=== PATIENT | female | born 1995 | race American Indian/Alaskan Native ===

== ENCOUNTER 2017-08-21 15:38 | Emergency (ER) | payer MEDICAID ==
[2017-08-21] MEDS ORDERED: TYLENOL PO ONE (17:04)
[2017-08-21] MEDS ORDERED: TYLENOL ONE (17:04)
[2017-08-21] MEDS ORDERED: TYLENOL/CODEINE PO ONE (18:12)
[2017-08-21 18:59] LABS: Bilirubin,Urine NEG (Negative); Blood,Urine NEG (Negative); Ketones,Urine TR mg/dL (Negative); Leukocyte Esterase,Urine NEG (Negative); Nitrite,Urine NEG (Negative); Protein,Urine <15 mg/dL mg/dL (Negative); Urobilinogen,Urine < 2.0 mg/dL (<2.0); WBC,Urine < 1.0 /HPF (0.0-6.0)
[2017-08-21] MEDS ORDERED: DECADRON IM ONE (19:12)
--- NOTE | 2017-08-21 19:38 | Emergency Department Report ---
HPI - General Chief Complaint: Sore Throat Time Seen by Provider: 08/21/17 18:59 - HPI HPI: 22-year-old female presents today complaining of a sore throat and body aches. Admits to fever, chills, cough, swollen lymph nodes, nasal congestion, pain with swallowing and nausea. He tried [id number] cold medication without relief. Denies chest pain, shortness of breath, abdominal pain, urinary symptoms, earache. ED Past Medical Hx - Past Medical History Hx Hypertension: No Hx Congestive Heart Failure: No Hx Diabetes: No Hx Deep Vein Thrombosis: No Hx Renal Disease: No Hx Sickle Cell Disease: No Hx Seizures: No Hx Asthma: No Hx COPD: No Hx HIV: No Additional medical history: PCOS - Surgical History Past Surgical History?: No - Social History Smoking Status: Unknown if ever smoked - Medications Home Medications: Home Medications Medication Instructions Recorded Confirmed Last Taken Type Pnv,Calcium 72/Iron/Folic Acid 1 tab PO DAILY 12/28/15 01/15/16 1 Day Ago History [Pnv Plus Multivit Tab] 1 HYDROcodone/APAP 5-325 [[place] 1 each PO Q6HR PRN #10 tablet 01/16/16 Unknown Rx 5-325 mg TAB] Ibuprofen [Motrin 600 MG tab] 600 mg PO Q6HR #60 tablet 01/16/16 Unknown Rx Acetamin/Codeine 120-12Mg/5 ml 5 ml PO TID PRN #60 ml 08/21/17 Unknown Rx [Tylenol/Codeine] Doxycycline Hyclate [Doxycycline 100 mg PO Q12HR #20 tab 08/21/17 Unknown Rx Hyclate TAB] Lidocaine Viscous 2% 15 ml MM TID #100 udc 08/21/17 Unknown Rx ED Review of Systems ROS: Stated complaint: BODY ACHES,SORE THROAT Other details as noted in HPI Constitutional: chills, fever Eyes: denies: eye pain ENT: throat pain, congestion. denies: ear pain Respiratory: cough. denies: shortness of breath, wheezing Cardiovascular: denies: chest pain, palpitations Endocrine: no symptoms reported Gastrointestinal: nausea. denies: abdominal pain Genitourinary: denies: urgency, dysuria, frequency, hematuria Skin: denies: rash Neurological: headache. denies: weakness Physical Exam - Physical Exam Vital Signs: Vital Signs 08/21/17 08/21/17 16:52 17:41 Temperature 100.0 F H 99 F Pulse Rate 118 H 110 H Respiratory 20 16 Rate Blood Pressure 118/86 Blood Pressure 109/64 [Left] O2 Sat by Pulse 100 99 Oximetry Physical Exam: GENERAL: The patient is well-developed and well-nourished. Patient is in NAD. HEAD: Normocephalic. Atraumatic. Tenderness to palpation of frontal sinus. EYES: Extraocular motions are intact, PERRL. EARS: External auditory canals and tympanic membranes clear; hearing grossly intact. NOSE: Normal nasal mucosa with no nasal discharge. THROAT: Erythematous with tonsillomegaly. No tonsillar exudates. NECK: Tenderness to palpation of anterior cervical lymph nodes. CHEST/LUNGS: Clear to auscultation throughout. HEART/CARDIOVASCULAR: Regular rate and rhythm. No murmurs, rubs or gallops. ABDOMEN: Abdomen is soft, nontender. Bowel sounds normoactive. No guarding or rebound tenderness. EXTREMITIES: Peripheral pulses intact. Capillary refill less than 2 seconds. NEURO: Alert and oriented x 3. Normal gait. ED Course Vital Signs 08/21/17 08/21/17 16:52 17:41 Temperature 100.0 F H 99 F Pulse Rate 118 H 110 H Respiratory 20 16 Rate Blood Pressure 118/86 Blood Pressure 109/64 [Left] O2 Sat by Pulse 100 99 Oximetry ED Medical Decision Making - Lab Data Vital Signs 08/21/17 08/21/17 08/21/17 16:52 17:41 20:00 Temperature 100.0 F H 99 F 98.6 F Pulse Rate 118 H 110 H 92 H Respiratory 20 16 18 Rate Blood Pressure 118/86 106/59 Blood Pressure 109/64 [Left] O2 Sat by Pulse 100 99 100 Oximetry Lab Results 08/21/17 Range/Units 18:30 Urine Color Yellow (Yellow) Urine Turbidity Clear (Clear) Urine pH 7.0 (5.0-7.0) Ur Specific [place] 1.013 (1.003-1.030) Urine Protein <15 mg/dl (Negative) mg/dL Urine Glucose (UA) Neg (Negative) mg/dL Urine Ketones Tr (Negative) mg/dL Urine Blood Neg (Negative) Urine Nitrite Neg (Negative) Ur Reducing Substances Not Reportable Urine Bilirubin Neg (Negative) Urine Ictotest Not Reportable Urine Urobilinogen < 2.0 (<2.0) mg/dL Ur Leukocyte Esterase Neg (Negative) Urine WBC (Auto) < 1.0 (0.0-6.0) /HPF Urine RBC (Auto) 1.0 (0.0-6.0) /HPF U Epithel Cells (Auto) 1.0 (0-13.0) /HPF Urine HCG, Qual Negative (Negative) Microbiology 08/21/17 17:30 Throat Group A Streptococcus Rapid Screen - Negative 08/21/17 17:30 Nasopharyngeal Swab Influenza Types A,B Antigen (GIOVANNY) - Negative - Medical Decision Making 22-year-old female presents today complaining of sore throat, body aches and cold symptoms. Her rapid strep test and flu test are negative. Patient is in no acute distress at this time. She will be discharged home and is encouraged to follow up with a primary care provider. She will be sent home on viscous lidocaine and Augmentin and is encouraged to return to the emergency room for any worsening symptoms. Critical care attestation.: If time is entered above; I have spent that time in minutes in the direct care of this critically ill patient, excluding procedure time. ED Disposition Clinical Impression: Sinusitis Qualifiers: Sinusitis location: frontal Chronicity: acute Recurrence: non-recurrent Qualified Code(s): J01.10 - Acute frontal sinusitis, unspecified Pharyngitis Qualifiers: Pharyngitis/tonsillitis etiology: unspecified etiology Qualified Code(s): J02.9 - Acute pharyngitis, unspecified URI (upper respiratory infection) Qualifiers: URI type: unspecified URI Qualified Code(s): J06.9 - Acute upper respiratory infection, unspecified Disposition: DC-01 TO HOME OR SELFCARE Is pt being admited?: No Does the pt Need Aspirin: No Condition: Stable Instructions: Pharyngitis (ED), Sinusitis (ED), Upper Respiratory Infection (ED ) Additional Instructions: Follow-up with primary care provider. Return to the emergency department if symptoms worsen. Prescriptions: Acetamin/Codeine 120-12Mg/5 ml [Tylenol/Codeine] 5 ml PO TID PRN #60 ml PRN Reason: Pain Doxycycline Hyclate [Doxycycline Hyclate TAB] 100 mg PO Q12HR #20 tab Lidocaine Viscous 2% 15 ml MM TID #100 udc Referrals: PRIMARY CARE, [Primary Care Provider] - 3-5 Days [facility] [Outside] - 3-5 Days Forms: Work/School Release Form(ED), Accompanied Note Time of Disposition: 20:26
[2017-08-21 20:12] VITALS: BP 106/59
== END 2017-08-21 20:30 | disposition home or self-care (01) ==
LOC: ED 15:38
DX: J01.10 Acute frontal sinusitis, unspecified (principal); J02.9 Acute pharyngitis, unspecified; J06.9 Acute upper respiratory infection, unspecified
CPT/HCPCS: 81001; 81025; 87116; 87400; 87430; 96372; 99283; J1100